=== PATIENT | female | born 1965 | race Caucasian/White ===

== ENCOUNTER 2019-08-23 10:51 | Observation (INO) | payer OTHER ==
[~2019-08-23] VITALS: Ht 172.8 cm; Wt 79.0 kg
[~2019-08-23 10:51] MED LIST: ASPIRIN 81M81 MG/TA2 PO; CATAPRES 0.1MG0.1 MG PO; CUTIVATE 60 ML60 ML TP; ESTRACE 1MG1 MG/TAB PO; FLONASE NASAL S16 GM NS; IMDUR 30MG30 MG/TAB PO; MASON NATURAL2000 IU PO; MULTIVITAMIN FO1 CAP PO; NEXIUM 40MG40 MG PO; NITROSTAT0.4 MG/TAB SL; PRILOSEC 20MG20 MG PO; SINGULAIR 110 MG/TAB PO; TEMOVATE0.052 TP; VITAMIN B COMPL1 TA1 PO; VITAMIN D2000 I1 PO; ZANTAC 7575 MG PO; ZYRTEC 10MG10 MG PO
[2019-09-18] VITALS (11 sets, daily range): BP systolic 102–145; BP diastolic 55–93; PULSE 55–76; TEMP 97.6–98.2
--- NOTE | 2019-09-18 09:04 | NUR ---
Patient brought back to [facility] bay 5, ambulated without difficulty. at bedside. Consent reviewed and signed, all questions answered. Vital signs stable. Lab at bedside to draw retype and screen. IV started to left forearm, infusing without difficulty. Warm blanket provided. Dr. Ochoa at bedside to answer any questions. Call milton within reach, all safety maintained, will continue to monitor.
--- NOTE | 2019-09-18 14:40 | NUR ---
Patient up to room 346 from OR. Drowsy and oriented x 3. Spouse at bedside. Lap sites x5 with edges well approximated. Parry to dependent drainage with clear yellow urine present. Post op fluids infusing to left forarm IV. Post op VSS. States cramping and discomfort to abdomen. Will continue to monitor.
--- NOTE | 2019-09-18 17:30 | NUR ---
Contacted Dr. Ochoa, patient complaining of bladder spasms and RLQ pain. PRN order for levsin entered.
--- NOTE | 2019-09-18 18:33 | NUR ---
Patient has done well, VSS. Continues to complain of mild pain to RLQ. Fluids infusing per orders. States mild nausea after eating. Zofran was given per orders. Denies further needs at this time. 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
[2019-09-19 03:37] VITALS: BP 103/54; PULSE 67; TEMP 97.9
[2019-09-19 07:21] VITALS: BP 128/77; PULSE 62; TEMP 98
--- NOTE | 2019-09-19 08:00 | NUR ---
Patient in bed resting. Alert and oriented x 3. Assessment complete. Lap sites x5 with edges well approximated. States tenderness to RLQ. Denies further needs at this time.
--- NOTE | 2019-09-19 09:38 | NUR ---
Area Field Worker met with patient to discuss discharge planning. Patient lives in [place] with her Shemar (ph#[phone]) and son David (ph#[phone]). Patient receives primary care and medications from [facility] on [address]. Patient states she is employed at [employer]. Patient does not have DPOA-HC and is not interested in setting up advance directives at this time. Patient plans to return home with son David providing transportation.
[2019-09-19 11:54] VITALS: BP 144/67; PULSE 55; TEMP 97.9
--- NOTE | 2019-09-19 12:00 | NUR ---
Contacted Dr. Ochoa, patient states she is having some urinary leaking when standing or sitting. Per Dr. Ochoa this can occassionally be expected post procedure. Patient also to sweet pickle maker script for pain medication at urology office. per Dr. Ochoa.
--- NOTE | 2019-09-19 13:45 | NUR ---
Discharge education provided to patient. Educated on care for incision sites and when to call provider. All questions answered. Denies further needs at this time. INT discontinued to left forarm, catheter tip intact. Denies further needs at this time. Ultram given prior to dischare for RLQ pain 5/10. Patient out by wheelchair with surgical staff.
== END 2019-09-19 13:45 | disposition home or self-care (01) ==
LOC: INPTSU 09-18 08:55 → SURG 09-18 08:55 → INPTSU 09-18 13:31 → SURG 09-18 15:25
PROVIDERS: ADMIT Urology
DX: N99.3 Prolapse of vaginal vault after hysterectomy (principal); K21.9 Gastro-esophageal reflux disease without esophagitis; I10 Essential (primary) hypertension; L30.9 Dermatitis, unspecified; N95.2 Postmenopausal atrophic vaginitis; J45.909 Unspecified asthma, uncomplicated; K58.9 Irritable bowel syndrome, unspecified; Z90.710 Acquired absence of both cervix and uterus; Z90.49 Acquired absence of other specified parts of digestive tract; Z88.6 Allergy status to analgesic agent; Z88.5 Allergy status to narcotic agent; Z88.0 Allergy status to penicillin; Z88.2 Allergy status to sulfonamides; Z91.041 Radiographic dye allergy status; Z82.49 Family history of ischemic heart disease and other diseases of the circulatory system; Z83.3 Family history of diabetes mellitus
CPT/HCPCS: A4314; C1781; G0378; G0379; J0690; J1100; J1170; J1885; J2250; J2405; J2704; J3010; J7120

== ENCOUNTER → 2021-12-18 | Outpatient (CLI) | payer OTHER | LOC: COL.RAD 07:28 | DX: R14.0 Abdominal distension (gaseous) (principal) | CPT/HCPCS: A9541 ==